=== PATIENT | male | born 1985 | race Caucasian/White ===

== ENCOUNTER 2017-08-03 10:18 | Emergency (ER) | payer OTHER ==
[~2017-08-03] VITALS: Ht 165.1 cm; Wt 76.2 kg
[2017-08-03 10:22] VITALS: BP 153/78; Ht 165.1 cm; Wt 76.2 kg
== END 2017-08-03 11:42 | disposition home or self-care (01) ==
LOC: ED 10:18
DX: H66.93 Otitis media, unspecified, bilateral (principal); H60.93 Unspecified otitis externa, bilateral
CPT/HCPCS: J0696

== ENCOUNTER 2017-08-06 18:29 | Emergency (ER) | payer OTHER ==
[~2017-08-06] VITALS: Ht 165.1 cm; Wt 73.0 kg
[2017-08-06 18:32] VITALS: Ht 165.1 cm; Wt 73.0 kg
[2017-08-06 20:46] VITALS: BP 138/82
== END 2017-08-06 20:46 | disposition home or self-care (01) ==
LOC: ED 18:29
DX: H92.03 Otalgia, bilateral (principal); H60.93 Unspecified otitis externa, bilateral